=== PATIENT | female | born 1975 | race Hispanic/Latino ===

== ENCOUNTER 2019-04-27 23:06 | Inpatient (IN) | payer SELFPAY ==
[~2019-04-27] VITALS: Ht 152.4 cm; Wt 79.8 kg
[~2019-04-27 23:06] MED LIST: CIPR-245 PO; FERS325 PO
[2019-04-27 23:23] LABS: BASOPHILS % (AUTO) 0.5 % (0.0-5.0); EOSINOPHILS % (AUTO) 2.4 % (0.0-8.0); HEMATOCRIT 24.9 % (36-48); LYMPHOCYTES % (AUTO) 31.3 % (21.0-51.0); MEAN CORPUSCULAR HEMOGLOBIN 15.1 pg (27.0-33.0); MEAN CORPUSCULAR HGB CONC 24.9 g/dL (32.0-36.0); MEAN CORPUSCULAR VOLUME 60.6 fL (79-99); MONOCYTES % (AUTO) 9.5 % (3.0-13.0); NEUTROPHILS % (AUTO) 55.9 % (40.0-77.0); PLATELET COUNT (AUTO) 489 K/uL (130-400); RED BLOOD CELL COUNT(AUTO) 4.11 MIL/uL (4.00-5.50); WHITE BLOOD COUNT (AUTO) 7.4 K/uL (4.8-10.8)
[2019-04-27 23:31] LABS: CREATININE 0.7 mg/dL (0.5-1.5); POTASSIUM 3.2 mmol/L (3.5-5.1)
[2019-04-27 23:33] LABS: INR 1.01 (0.85-1.15); PARTIAL THROMBOPLASTIN TIME 22.2 SEC (26.3-35.5); PROTHROMBIN TIME 10.6 SEC (9.6-11.6)
[2019-04-27 23:37] LABS: ALBUMIN 3.6 g/dL (3.5-5.0); BILIRUBIN,TOTAL 0.5 mg/dL (0.2-1.0); TOTAL PROTEIN, SERUM 7.7 g/dL (6.0-8.3)
[2019-04-28 01:12] LABS: APPEARANCE,URINE Cloudy (CLEAR); BILIRUBIN,URINE Negative (NEGATIVE); COLOR,URINE Yellow (YELLOW); GLUCOSE, URINE (UA) Negative (NEGATIVE); KETONES,URINE Negative (NEGATIVE); LEUKOCYTE ESTERASE ,URINE Small (NEGATIVE); NITRATE,URINE Negative (NEGATIVE); OCCULT BLOOD,URINE Negative (NEGATIVE); PROTEIN,URINE Trace mg/dL (NEGATIVE)
[2019-04-28 01:24] LABS: HCG,QUAL RESULT NEGATIVE (NEGATIVE)
[2019-04-28 01:27] LABS: BACTERIA,URINE Rare /HPF (None Seen); MUCUS,URINE Few LPF (None Seen); RBC,URINE None Seen /HPF (0-1); SQUAMOUS EPITHELIAL CELL,UR Few /HPF (0-2)
[2019-04-28] MEDS ORDERED: POTASSIUM CHLORIDE 20 MEQ ERTAB PO SCH (03:00)
[2019-04-28] MEDS ORDERED: POTASSIUM CHLORIDE 20 MEQ ERTAB PO ONE (03:01)
[2019-04-28 03:20] VITALS: BP 156/83
[2019-04-28 03:46] LABS: % IRON SATURATION 2.1 % (22-44)
[2019-04-28 04:13] LABS: CREATINE KINASE, TOTAL 62 U/L (21-232); MYOGLOBIN 11 ng/mL (10-92); TROPONIN I < 0.04 ng/mL (0.00-0.06)
--- NOTE | 2019-04-28 04:36 | NUR ---
H/H POST TRANFUSION H/H ORDERED FOR 0445 (04/28/19) PER POST TRANSFUSION PROTOCOL A THIS TIME.
[2019-04-28] MEDS ORDERED: NITROGLYCERIN 0.4 MG SL TAB SL PRN (05:15)
[2019-04-28] MEDS ORDERED: ONDANSETRON HCL 4 MG/2 ML VIAL IV PRN (05:15)
[2019-04-28] MEDS ORDERED: ACETAMINOPHEN 325 MG TAB PO PRN ×2 (05:15)
--- NOTE | 2019-04-28 05:38 | NUR ---
LAST MENSES PT STATES HE LAST MENSES ENDED 04/19/19. THE LENGTH OF HER MENSES WAS 5 DAYS WITH 4 PADS EXCHANGED DAILY.
[2019-04-28 06:28] LABS: HEMATOCRIT 27.5 % (36-48); MEAN CORPUSCULAR HGB CONC 26.5 g/dL (32.0-36.0); PLATELET COUNT (AUTO) 453 K/uL (130-400); RED CELL DISTRIBUTION WIDTH 23.9 % (11.0-15.5); WHITE BLOOD COUNT (AUTO) 6.2 K/uL (4.8-10.8)
[2019-04-28 06:59] LABS: ALBUMIN 3.3 g/dL (3.5-5.0); BILIRUBIN,TOTAL 0.7 mg/dL (0.2-1.0); CREATININE 0.5 mg/dL (0.5-1.5); POTASSIUM 4.1 mmol/L (3.5-5.1); TOTAL PROTEIN, SERUM 7.3 g/dL (6.0-8.3)
[2019-04-28 07:05] LABS: CREATINE KINASE, TOTAL 50 U/L (21-232); MYOGLOBIN 11 ng/mL (10-92); TROPONIN I < 0.04 ng/mL (0.00-0.06)
[2019-04-28 08:00] VITALS: BP 128/75
[2019-04-28] MEDS ORDERED: FERROUS SULFATE 325 MG TABLET.DR PO SCH (09:00)
[2019-04-28 09:15] LABS: EOSINOPHILS % (MANUAL) 5 % (1-6); LYMPHOCYTES % (MANUAL) 35 % (22-44); MAN.DIFF COMMENT-IMPRESSION MANUAL DIFFERENTIAL; MONOCYTES % (MANUAL) 6 % (2-9); SEGMENTED NEUTROPHILS % 54 % (40-70)
[2019-04-28 09:17] LABS: PLATELET MORPHOLOGY COMMENT SLIGHT INCREASED
[2019-04-28] MEDS: DOCUSATE SODIUM 100 MG CAP PO SCH (09:26)
[2019-04-28] MEDS: ASCORBIC ACID 500 MG TAB PO SCH (09:26)
[2019-04-28] MEDS: FAMOTIDINE 20MG TAB 20 MG TAB PO SCH ×2 (09:26→20:42)
[2019-04-28] MEDS: SODIUM CHLORIDE 0.9% 1000ML 1,000 ML IV SCH ×2 (09:27→18:17)
[2019-04-28 11:27] VITALS: BP 137/82
[2019-04-28 12:27] LABS: HEMATOCRIT 28.3 % (36-48)
[2019-04-28 16:00] VITALS: BP 132/79
[2019-04-28] MEDS: FERROUS SULFATE 325 MG TABLET.DR PO SCH ×2 (18:17→20:42)
[2019-04-28 18:40] LABS: HEMATOCRIT 28.1 % (36-48)
[2019-04-28 20:15] VITALS: BP 141/87
[2019-04-29 01:21] VITALS: BP 139/74
[2019-04-29] MEDS: SODIUM CHLORIDE 0.9% 1000ML 1,000 ML IV SCH (03:24)
[2019-04-29 04:39] VITALS: BP 139/84
[2019-04-29 05:59] LABS: BASOPHILS % (AUTO) 0.6 % (0.0-5.0); EOSINOPHILS % (AUTO) 2.3 % (0.0-8.0); MEAN CORPUSCULAR HEMOGLOBIN 17.3 pg (27.0-33.0); MEAN CORPUSCULAR HGB CONC 26.9 g/dL (32.0-36.0); MEAN CORPUSCULAR VOLUME 64.2 fL (79-99); MONOCYTES % (AUTO) 8.9 % (3.0-13.0); NUCLEATED RED BLOOD CELLS 0.8 % (0.0-0.19); PLATELET COUNT (AUTO) 426 K/uL (130-400); RED BLOOD CELL COUNT(AUTO) 4.52 MIL/uL (4.00-5.50); RED CELL DISTRIBUTION WIDTH 23.5 % (11.0-15.5); WHITE BLOOD COUNT (AUTO) 7.8 K/uL (4.8-10.8)
[2019-04-29 06:15] LABS: CREATININE 0.5 mg/dL (0.5-1.5); POTASSIUM 3.7 mmol/L (3.5-5.1)
[2019-04-29 07:30] VITALS: BP 136/91
[2019-04-29] MEDS ORDERED: POLYETHYLENE GLYCOL 3350 17 GM POWD.PACK PO SCH (09:00)
[2019-04-29] MEDS ORDERED: BISA10SU61 RC (09:28)
[2019-04-29] MEDS ORDERED: FERR325T22 PO (09:28)
[2019-04-29] MEDS ORDERED: POLY17PO4 PO (09:28)
[2019-04-29 11:00] VITALS: BP 126/72
[2019-04-29] MEDS: ASCORBIC ACID 500 MG TAB PO SCH (13:53)
[2019-04-29] MEDS: FERROUS SULFATE 325 MG TABLET.DR PO SCH (13:53)
[2019-04-29] MEDS: DOCUSATE SODIUM 100 MG CAP PO SCH (13:53)
[2019-04-29] MEDS: FAMOTIDINE 20MG TAB 20 MG TAB PO SCH (13:53)
== END 2019-04-29 13:50 | disposition home or self-care (01) | DRG 812 ==
LOC: EDH 23:06 → EDHIP 23:07 → 3CH 04-28 04:43
PROVIDERS: ADMIT Hospitalist; ATTEND Hospitalist
PROC: 30233N1 Transfusion of Nonautologous Red Blood Cells into Peripheral Vein, Percutaneous Approach (ICD-10-PCS; principal; 2019-04-27)
DX: D62 Acute posthemorrhagic anemia (principal); K59.00 Constipation, unspecified
CPT/HCPCS: 36415; 71045; 76856; 80048; 80053; 81001; 81025; 82270; 82550; 82607; 82728; 83540; 83550; 83735; 83874; 83880; 84484; 85014; 85018; 85025; 85610; 85730; 86850; 86900; 86901; 86922; 93005; 99291; G0378; J7030; P9016

== ENCOUNTER 2021-01-02 17:21 | Observation (INO) | payer SELFPAY ==
[~2021-01-02] VITALS: Ht 154.9 cm; Wt 74.8 kg
[~2021-01-02 17:21] MED LIST changes: +BISA10SU61 RC; -CIPR-245 PO; +FERR325T22 PO; -FERS325 PO; +POLY17PO4 PO
[2021-01-02 17:24] VITALS: BP 140/72
[2021-01-02 18:06] LABS: BASOPHILS % (AUTO) 0.6 % (0.0-5.0); EOSINOPHILS % (AUTO) 1.9 % (0.0-8.0); HEMATOCRIT 24.2 % (36-48); LYMPHOCYTES % (AUTO) 12.4 % (21.0-51.0); MEAN CORPUSCULAR HEMOGLOBIN 17.1 pg (27.0-33.0); MEAN CORPUSCULAR VOLUME 65.8 fL (79-99); MONOCYTES % (AUTO) 7.6 % (3.0-13.0); NEUTROPHILS % (AUTO) 76.8 % (40.0-77.0); NUCLEATED RED BLOOD CELLS 0.4 % (0.0-0.19); PLATELET COUNT (AUTO) 350 K/uL (130-400); RED BLOOD CELL COUNT(AUTO) 3.68 MIL/uL (4.00-5.50); RED CELL DISTRIBUTION WIDTH 19.3 % (11.0-15.5)
[2021-01-02 18:16] LABS: CREATININE 0.6 mg/dL (0.5-1.5); INR 1.07 (0.85-1.15); POTASSIUM 3.7 mmol/L (3.5-5.1); PROTHROMBIN TIME 11.6 SEC (9.6-11.6)
[2021-01-02 18:17] LABS: PARTIAL THROMBOPLASTIN TIME 22.5 SEC (26.3-35.5)
[2021-01-02 18:25] LABS: ALBUMIN 3.2 g/dL (3.5-5.0); BILIRUBIN,TOTAL 0.5 mg/dL (0.2-1.0); TOTAL PROTEIN, SERUM 7.1 g/dL (6.0-8.3)
[2021-01-02 18:31] VITALS: BP 153/62
[2021-01-02 18:37] LABS: B-TYPE NATRIURETIC PEPTIDE 55 pg/mL (0-100)
[2021-01-02 19:29] VITALS: BP 129/67
[2021-01-02 21:00] VITALS: BP 135/40
[2021-01-02 21:49] VITALS: BP 150/68
[2021-01-02 22:06] LABS: APPEARANCE,URINE Clear (CLEAR); BILIRUBIN,URINE Negative (NEGATIVE); COLOR,URINE Yellow (YELLOW); GLUCOSE, URINE (UA) Negative (NEGATIVE); KETONES,URINE Negative (NEGATIVE); LEUKOCYTE ESTERASE ,URINE Trace (NEGATIVE); NITRATE,URINE Negative (NEGATIVE); OCCULT BLOOD,URINE Moderate (NEGATIVE); PH,URINE 7.5 (5.0-8.0); PROTEIN,URINE POS 1+ mg/dL (NEGATIVE)
[2021-01-02 22:11] LABS: BACTERIA,URINE Few /HPF (None Seen); RBC,URINE 0-1 /HPF (0-1)
[2021-01-02 22:12] LABS: MUCUS,URINE Rare LPF (None Seen); SQUAMOUS EPITHELIAL CELL,UR Few /HPF (0-2); TRANSITIONAL EPI CELLS,URINE Rare /HPF (None Seen)
[2021-01-02] MEDS ORDERED: 0.9%NACL 1000ML 1,000 ML IV SCH (23:30)
[2021-01-03 00:09] VITALS: BP 98/56
[2021-01-03 00:20] VITALS: BP 127/77
[2021-01-03 00:30] VITALS: BP 128/70
[2021-01-03] MEDS ORDERED: BUTORPHANOL TARTRATE 1 MG/ML IVP PRN (01:00)
[2021-01-03] MEDS ORDERED: PROMETHAZINE HCL 25 MG/ML 1ML AMPULE IM PRN (01:00)
[2021-01-03] MEDS ORDERED: BUTORPHANOL TARTRATE 2 MG/ML IVP PRN (01:00)
[2021-01-03 03:00] VITALS: BP 124/69
[2021-01-03 05:22] LABS: HEMATOCRIT 34.2 % (36-48); MEAN CORPUSCULAR HEMOGLOBIN 20.6 pg (27.0-33.0); MEAN CORPUSCULAR HGB CONC 28.4 g/dL (32.0-36.0); MEAN CORPUSCULAR VOLUME 72.5 fL (79-99); NUCLEATED RED BLOOD CELLS 0.2 % (0.0-0.19); RED BLOOD CELL COUNT(AUTO) 4.72 MIL/uL (4.00-5.50); RED CELL DISTRIBUTION WIDTH 22.5 % (11.0-15.5); WHITE BLOOD COUNT (AUTO) 8.3 K/uL (4.8-10.8)
[2021-01-03 05:45] LABS: ALBUMIN 3.4 g/dL (3.5-5.0); BILIRUBIN,TOTAL 1.2 mg/dL (0.2-1.0); CREATININE 0.5 mg/dL (0.5-1.5); POTASSIUM 3.6 mmol/L (3.5-5.1); TOTAL PROTEIN, SERUM 7.5 g/dL (6.0-8.3)
[2021-01-03 07:10] VITALS: BP_SYST 120; BP_SYST 139; BP_DIAS 66; BP_DIAS 80
[2021-01-03 11:26] VITALS: BP 142/98
== END 2021-01-03 13:30 | disposition home or self-care (01) ==
LOC: EDH 17:21 → EDHIP 17:22 → WSH 23:10
PROVIDERS: ADMIT Obstetrics & Gynecology; ATTEND Obstetrics & Gynecology
DX: D62 Acute posthemorrhagic anemia (principal); R07.89 Other chest pain; N93.8 Other specified abnormal uterine and vaginal bleeding
CPT/HCPCS: 36415 ×2; 36430 ×2; 71045; 76856; 80053 ×2; 81001; 83880; 84484; 85025; 85027; 85610; 85730; 86850; 86900; 86901; 86923 ×2; 93005; 96360; 96361; 99285; G0378 ×13; J7030 ×2; P9016 ×2